=== PATIENT | male | born 1940 | race Caucasian/White ===

== ENCOUNTER → 2016-07-22 | Outpatient (CLI) | payer MEDICARE ==
[~2016-07-22] MED LIST: REGADENOSON 0.4 MG/5 ML DISP.SYRIN. IV ONE
== END | disposition home or self-care (01) ==
LOC: PCVCIMAG 07:32
PROVIDERS: ATTEND Internal Medicine Cardiovascular Disease
DX: I25.10 Atherosclerotic heart disease of native coronary artery without angina pectoris (principal); I73.9 Peripheral vascular disease, unspecified; I10 Essential (primary) hypertension; E78.00 Pure hypercholesterolemia, unspecified; I65.23 Occlusion and stenosis of bilateral carotid arteries
CPT/HCPCS: 78452; 93017; 93306; 93880; A9500; J2785

== ENCOUNTER → 2016-07-30 | Outpatient (CLI) | payer MEDICARE | END | disposition home or self-care (01) | LOC: PCVCCLINIC 11:20 | PROVIDERS: ATTEND Internal Medicine Cardiovascular Disease | DX: I42.9 Cardiomyopathy, unspecified (principal); E78.5 Hyperlipidemia, unspecified; I12.9 Hypertensive chronic kidney disease with stage 1 through stage 4 chronic kidney disease, or unspecified chronic kidney disease; N18.9 Chronic kidney disease, unspecified; G93.40 Encephalopathy, unspecified; R09.89 Other specified symptoms and signs involving the circulatory and respiratory systems; F10.10 Alcohol abuse, uncomplicated; I73.9 Peripheral vascular disease, unspecified; R19.8 Other specified symptoms and signs involving the digestive system and abdomen; I25.10 Atherosclerotic heart disease of native coronary artery without angina pectoris | CPT/HCPCS: 80061; 93005; G0463 ==

== ENCOUNTER → 2016-08-07 | Outpatient (CLI) | payer MEDICARE | END | disposition home or self-care (01) | LOC: PCVCIMAG 08:38 | PROVIDERS: ATTEND Internal Medicine Cardiovascular Disease | DX: I71.4 Abdominal aortic aneurysm, without rupture (principal); E78.5 Hyperlipidemia, unspecified; I10 Essential (primary) hypertension; I70.213 Atherosclerosis of native arteries of extremities with intermittent claudication, bilateral legs | CPT/HCPCS: 93925; 93978 ==

== ENCOUNTER → 2016-09-01 | Outpatient (CLI) | payer MEDICARE ==
[~2016-09-01] MED LIST changes: +ASPIRIN 325 MG TABLET ONE; +CEFAZOLIN 2GM PREMIX 50 ML IV ONE; +CLOPIDOGREL BISULFATE 75 MG TABLET ONE; +DIAZEPAM 10 MG TABLET ONE; +EPTIFIBATIDE BOLUS 2,000 MCG/ML 10ML VIAL. IV ONE; +FENTANYL PF 100 MCG/2 ML VIAL. ONE; +HEPARIN 5,000 UNIT/ML VIAL for PCVC ONE; +HEPARIN for ARTERIAL LINE 1,500 ML ONE; +IODIXANOL 270 MG/ML 100 ML VIAL. ONE; +IOHEXOL 350 MG/ML 100ML VIAL. ONE; +IV NORMAL SALINE 1000ML BAG 1,000 ML ONE; +IV NORMAL SALINE 500ML BAG 500 ML ONE; +LIDOCAINE 1% Multi-Dose 20 ML VIAL. ONE; +MIDAZOLAM HCL 2 MG/2 ML VIAL. ONE; -REGADENOSON 0.4 MG/5 ML DISP.SYRIN. IV ONE; +hydrALAZINE 20 MG/ML VIAL. ONE
== END ==
LOC: PCVCINTER 07:16
PROVIDERS: ATTEND Internal Medicine Cardiovascular Disease
DX: I70.203 Unspecified atherosclerosis of native arteries of extremities, bilateral legs (principal); I70.0 Atherosclerosis of aorta; I15.0 Renovascular hypertension; I70.1 Atherosclerosis of renal artery; I77.1 Stricture of artery
CPT/HCPCS: 36252; 37186; 37221; 37227; 75716; 76937; 93458; C1725; C1751; C1757; C1760; C1769; C1876; C1885; C1887; C1894; C2623; J0360; J0690; J1327; J1644; J2250; J3010; J7030; J7040; Q9967; 61707

== ENCOUNTER → 2017-03-05 | Outpatient (CLI) | payer BC | END | disposition home or self-care (01) | LOC: PCVCCLINIC 12:13 | PROVIDERS: ATTEND Internal Medicine Cardiovascular Disease | DX: I25.10 Atherosclerotic heart disease of native coronary artery without angina pectoris (principal); I12.9 Hypertensive chronic kidney disease with stage 1 through stage 4 chronic kidney disease, or unspecified chronic kidney disease; N18.3 Chronic kidney disease, stage 3 (moderate); F10.10 Alcohol abuse, uncomplicated; I42.9 Cardiomyopathy, unspecified; I73.9 Peripheral vascular disease, unspecified; I48.0 Paroxysmal atrial fibrillation; F17.210 Nicotine dependence, cigarettes, uncomplicated; R94.31 Abnormal electrocardiogram [ECG] [EKG]; Z79.899 Other long term (current) drug therapy | CPT/HCPCS: 80061; 93005; G0463 ==

== ENCOUNTER → 2017-03-09 | Outpatient (CLI) | payer BC ==
--- NOTE | 2017-03-09 13:50 | PCVCIMAG ---
EXAM: AORTOILIAC DUPLEX INDICATION: Peripheral arterial disease FINDINGS: AORTA: Suprarenal aorta measures maximum diameter of 2.7 cm. There is a fusiform infrarenal aortic aneurysm. The infrarenal aorta measures maximum diameter of 3.0 cm. N aortic stenosis. RIGHT COMMON ILIAC ARTERY: Maximum diameter is 1.3 cm. No significant stenosis. RIGHT EXTERNAL ILIAC ARTERY: No significant stenosis. LEFT COMMON ILIAC ARTERY: Maximum diameter is 1.4 cm. No significant stenosis. LEFT EXTERNAL ILIAC ARTERY: No significant stenosis. IMPRESSION: 3.0 cm infrarenal abdominal aortic aneurysm. No high-grade aortoiliac stenosis. LOC:[id number]
--- NOTE | 2017-03-09 13:53 | PCVCIMAG ---
EXAM: NONINVASIVE ARTERIAL EXAMINATION OF BOTH LOWER EXTREMITIES INCLUDING PRE AND POST EXERCISE PRESSURE MEASUREMENTS AND DOPPLER WAVEFORMS INDICATION: Peripheral Arterial Disease. Leg pain. FINDINGS: Right Brachial: 182 mm Hg. Right Dorsalis Pedis: 172 mm Hg. Right Posterior Tibial: 177 mm Hg. Right AMENA = 0.97. Left Brachial: 128 mm Hg. Left Dorsalis Pedis: 178 mm Hg. Left Posterior Tibial: 187 mm Hg. Left AMENA = 1.03. Post Exercise: Right Brachial 188 mm Hg. Right Posterior Tibial: 143 mm Hg. Left Posterior Tibial: 196 mm Hg. Right AMENA = 0.76. Left AMENA = 1.04. IMPRESSION: No resting ischemia in the right lower extremity. Mild exercise induced ischemia in the right lower extremity. No resting ischemia in the left lower extremity. No exercise induced ischemia in the left lower extremity. LOC:[id number]
--- NOTE | 2017-03-09 13:57 | PCVCIMAG ---
EXAM: BILATERAL LOWER EXTREMITY ARTERIAL DUPLEX INDICATION: Peripheral Arterial Disease. Leg pain. FINDINGS: Right Leg: Satisfactory arterial waveforms in the common femoral and profunda femoral artery. Mild velocity elevation mid superficial femoral artery of 240 cm/s consistent with 50% stenosis. The popliteal artery is patent. The anterior tibial, peroneal, posterior tibial arteries are patent. Left Leg: Satisfactory arterial waveforms in the common femoral and profunda femoral arteries. Mild velocity elevation proximal superficial femoral artery within the proximal portion of prior stent of 255 cm/s consistent with 40-50% restenosis. Remainder of the stent in the mid and distal superficial femoral artery showing good patency. Popliteal artery is patent. 70% stenosis proximal anterior tibial artery. The peroneal artery and posterior tibial artery are patent. IMPRESSION: 50% stenosis mid right superficial femoral artery not felt to be flow-limiting. 40-50% restenosis proximal left superficial femoral artery at the proximal margin of a prior stent. LOC:[id number]
--- NOTE | 2017-03-09 16:45 | PCVCIMAG ---
EXAM: ARTERIAL DUPLEX LEFT UPPER EXTREMITY INDICATION: Left arm pain. FINDINGS: Left arm: Increased systolic velocity proximal subclavian artery of 502 cm/s consistent with 95% stenosis. Bidirectional flow is noted in the left vertebral artery. Mid and distal subclavian artery are patent. The axillary, brachial, radial, and ulnar arteries are patent. 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 LOC:[place] [id number]
--- NOTE | 2017-03-11 08:40 | PCVCIMAG ---
APPROVED REPORT Exam: Stress Echocardiogram Indication: CAD, Hypertension, PVD. Stress Nurse: Julieta Block RN Status: routine Ht: 5 ft 7 in Rhythm: NSR Procedure The patient underwent an Exercise Stress Test using the Grant Protocol. Blood pressure, heart rate, and EKG were monitored. An Echocardiogram was performed by mechanical technician in four stages in quad fashion. At peak stress, four selected images were obtained and placed side by side with resting images for comparison. Stress Test Details Stress Test: Exercise stress testing was performed using a Grant protocol. HR Resting HR: 65 bpmMax Heart Rate (APMHR): 143 bpm Max HR Achieved: 122 bpmTarget HR (85% APMHR): 121 bpm % of APMHR: 85 HR response to stress: Normal HR response to stress BP Resting BP: 140/80 mmHg Max BP: 190/88 mmHg ECG Resting ECG: Sinus Rhythm ST Change: ST depression Arrhythmia: VPC's Clinical Reason for Termination: Maximal effort Stress Symptoms: Dyspnea Exercise duration: 6 min sec Highest Stage Achieved: Stage 2: 2.5 mph at 12% grade. Exercise capacity: 7.20 METs Overall Exercise Capacity for Age: Average Stress ECG Conclusion Submaxima stress test. Pre-Stress Echo The resting Echocardiogram showed normalabnormal left ventricular contractility with an estimated Ejection Fraction of about 40-45%. Apical, anterior and inferior wall hypokinesis. Post-Stress Echo The stress Echocardiogram showed abnormal left ventricular contractility with an estimated Ejection Fraction of about 40-45%. Apical, anterior and inferior wall hypokinesis Conclusion Clinical Response: Equivocal Exercise Capacity: Below Average Stress ECG Response: Ischemic Stress Echo Images: Equivocal
== END | disposition home or self-care (01) ==
LOC: PCVCIMAG 10:27
PROVIDERS: ATTEND Internal Medicine Cardiovascular Disease
DX: I70.202 Unspecified atherosclerosis of native arteries of extremities, left leg (principal); I70.291 Other atherosclerosis of native arteries of extremities, right leg; I71.4 Abdominal aortic aneurysm, without rupture; M79.622 Pain in left upper arm; I77.1 Stricture of artery; Z95.828 Presence of other vascular implants and grafts
CPT/HCPCS: 93325; 93351; 93923; 93925; 93931; 93978; 93924

== ENCOUNTER → 2017-03-13 | Outpatient (CLI) | payer BC | END | disposition home or self-care (01) | LOC: PCVCCLINIC 15:35 | PROVIDERS: ATTEND Nuclear Medicine Nuclear Cardiology | DX: Z01.812 Encounter for preprocedural laboratory examination (principal); I73.9 Peripheral vascular disease, unspecified; I25.10 Atherosclerotic heart disease of native coronary artery without angina pectoris; I10 Essential (primary) hypertension | CPT/HCPCS: 36415 ==

== ENCOUNTER → 2017-03-16 | Outpatient (CLI) | payer BC ==
[~2017-03-16] MED LIST changes: -ASPIRIN 325 MG TABLET ONE; -CEFAZOLIN 2GM PREMIX 50 ML IV ONE; -CLOPIDOGREL BISULFATE 75 MG TABLET ONE; -DIAZEPAM 10 MG TABLET ONE; +DIAZEPAM 10 MG TABLET. ONE; -FENTANYL PF 100 MCG/2 ML VIAL. ONE; -HEPARIN 5,000 UNIT/ML VIAL for PCVC ONE; +HEPARIN SODIUM 5,000 UNIT/ML VIAL for PCVC. ONE; +IOHEXOL 300 MG/ML 100ML VIAL. ONE; +IOHEXOL 350 MG/ML 100 ML VIAL. ONE; -IOHEXOL 350 MG/ML 100ML VIAL. ONE; -IV NORMAL SALINE 1000ML BAG 1,000 ML ONE; +IV NORMAL SALINE 500ML BAG 0 ML ONE; +LIDOCAINE 1%/EPI 1:100,000 20 ML VIAL. ONE; -MIDAZOLAM HCL 2 MG/2 ML VIAL. ONE; +MIDAZOLAM HCL/PF 2 MG/2 ML VIAL. ONE; +NITROGLYCERIN PREMIX 0 ML IV ONE; +fentaNYL PF VIAL 100 MCG/2 ML VIAL ONE
--- NOTE | 2017-03-16 17:18 | PCVCINTER ---
EXAM: 1. AORTOGRAM AND BILATERAL LOWER EXTREMITY RUNOFF ANGIOGRAM 2. BILATERAL RENAL ANGIOGRAPHY 3. CERVICAL CEPHALIC ARCH AORTOGRAM. 4. LEFT SUBCLAVIAN ANGIOGRAPHY. 5. LEFT SUBCLAVIAN ARTERY ANGIOSCULPT ANGIOPLASTY. 6. RIGHT COMMON ILIAC ARTERY STENT PLACEMENT. 7. RIGHT EXTERNAL ILIAC ARTERY ANGIOPLASTY. INDICATION: Peripheral arterial disease. Coronary artery disease. Lower extremity pain. Hypertension. Renal atherosclerosis. Left subclavian steal. Left arm pain. PROCEDURE: Procedure and risks of angiography intervention is appropriate including limb loss stroke and were discussed with the patient's family and consent obtained. The patient's right groin was prepped abnormal sterile fashion. IV conscious sedation was used to procedure with appropriate monitoring from 11:00 AM through 12:30 PM. Ultrasound was used to interrogate the right groin and showed the right common femoral artery to be patent. A permanent spot film was obtained. Under ultrasound guidance access into the right common femoral artery was obtained and a 5 Vietnamese sheath was placed. Through this a 5 Vietnamese flush catheter was placed to the level of the ascending aorta and cervical cephalic arch aortogram was performed. Catheter was then placed into the abdominal aorta at the level of the renal arteries and AP aortogram was performed. Catheter was positioned at the aortic bifurcation and both oblique views of the pelvis were obtained. Catheter was positioned into the right external iliac artery and right leg runoff angiography was performed. Catheter was exchanged for a visceral catheter was placed into the right renal arteries and right renal angiograms obtained. Catheter was placed into the the left renal arteries and left renal angiograms were obtained. Catheter was advanced to the level of the left external iliac artery and left leg runoff angiography was obtained. Catheter was placed into the proximal left subclavian artery left subclavian angiogram was obtained. Patient was given 4500 units of heparin. Angioplasty of the stenosis in the proximal/mid left subclavian artery was accomplished with a 7 x 4 angiosculpt PERSONNEL ANALYST catheter. Stent placement across the areas of high-grade stenosis in the right common iliac artery was carried out with a 10 x 40 Smart control stent with subsequent dilatation to 9.0 mm. Angioplasty of in-stent restenosis in the right external iliac artery was carried out with an 8 x 4 PowerFlex PERSONNEL ANALYST catheter. Follow-up angiogram was performed. Catheters and wires removed. Dr. Bejarano joined the procedure and he performed coronary angiography. Please see his dictation for details. Sheath was removed and hemostasis obtained using the FISH device. No immediate complications. FINDINGS: Cervical cephalic arch aortogram: The innominate artery and left common carotid artery origins are patent. The origin left subclavian artery is patent. Left subclavian angiogram: In the proximal/mid subclavian artery just proximal to the origin of the left vertebral artery is a 90% stenosis. There is bidirectional flow in the left vertebral artery. Aortogram: There are 2 right and one left renal artery. Ectasia and ulceration of the mid infrarenal abdominal aorta. No high-grade stenosis. Pelvis: Moderate stenosis of the common iliac artery. Moderate in-stent restenosis proximal/mid external iliac artery on the right. Mild stenosis right common femoral artery. Scattered plaque in the left common iliac artery without significant stenosis. Previous stent left external iliac artery maintaining satisfactory patency. Both internal iliac arteries are patent. Mild stenosis lower common femoral artery. Both profunda femoral arteries are patent. Right renal artery: There are 2 right renal arteries. The lower renal artery origin is just above the aortic bifurcation and shows mild stenosis in its proximal portion. The upper renal artery is dominant showing moderate plaque with only minimal stenosis. Left renal artery: Moderate plaque proximal vessel without significant stenosis. Right leg: Moderate scattered plaque in the superficial femoral artery and popliteal artery without flow-limiting stenosis. Satisfactory three-vessel runoff into the foot. Left leg: Previous stent graft throughout the superficial femoral artery is maintaining good patency. The popliteal artery is patent. 90% stenosis at the origin of the anterior tibial artery. The peroneal artery and posterior tibial arteries are patent throughout were visualized. Left subclavian artery: Following procedure as above vessel shows good patency without significant residual stenosis. Right common iliac artery: Following procedure as above vessel shows good patency. Right external iliac artery: Following procedure as above vessel shows good patency. IMPRESSION: 90% stenosis proximal/mid left subclavian artery as described above was treated as above with good patency restored. Right common and external iliac artery stenoses were treated as above with good patency restored. Previous left superficial femoral artery stent maintaining good patency. follow up LOC:[place] [id number]
--- NOTE | 2017-03-17 23:23 | PCVCINTER ---
APPROVED REPORT Patient Details Patient Status: Room #: 3 The patient is a 76 year-old Male Event Personnel Milli Nunez RN, Micheal Galaviz RN, Paulo Sapp RT(R)(), Caroline Phillips RT(R), Carmelina Cortes MD, Trav Bejarano MD Risk Factors Arterial HypertensionDysplipidemia (Type: 1), Family HistoryPeripheral Vascular Disease, Hypercholesterolemia, Last Creatanine 0.9Tobacco History (Current/Recent(w/in 1 year)) Previous Procedures/Diagnoses Previous Femoral Procedure, Previous CHF, CAD, CHF, PVD, LV dysfunction, Hypertension Procedure Narrative The patient was brought electively to the Cardiac Catheterization Laboratory and was prepped and draped in a sterile manner. The right femoral was infiltrated with 1% Lidocaine subcutaneous anesthesia. The right femoral accessed via ultrasound guidance. A sheath was inserted into the right femoral artery. Coronary angiography was performed using coronary diagnostic catheters. The right coronary system was accessed and visualized with a Diagnostic catheter. The left coronary system was accessed and visualized with a Diagnostic catheter. The left ventricle was accessed and visualized with a Diagnostic catheter. Left ventriculogram was performed in VARGAS projection. Closure device was deployed with a 8 Fr Fish. Hemostasis was obtained with manual pressure following sheath removal without any complications. The patient tolerated the procedure well and there were no complications associated with the procedure. There was no hematoma. Hemodynamics The right atrial mean pressure is 9 mmHg. The right ventricular pressure is 139 mmHg. The pulmonary artery pressure is 139 mmHg with a mean of 9 mmHg. The mean pulmonary capillary wedge pressure is 9 mmHg. The aortic pressure is 157/51 mmHg with a mean of 32 mmHg. The left ventricular pressure is 139/3 mmHg with a mean of 9 mmHg. Conclusion #1 normal left ventricular size and systolic function lower limits of normal EF 50-55% #2 left main free of disease giving rise to LAD and circumflex #3 LAD mildly disease 3040% proximal and mild diffuse disease in this vessel is extensive the apex #4 nondominant circumflex with diffuse disease involving OM and small distal circumflex. #5 large dominant right coronary artery 3040% proximal lesion distally there is a 50-60% long stenosis proximal to the bifurcation not flow limiting PDA EMANUEL a large and well-preserved Recommendations and plan continue aggressive risk factor modification no current indication for intervention. No lifting for 48 hours no line tub Jacuzzi or Galloway for a week. Close follow-up scheduled.
== END | disposition home or self-care (01) ==
LOC: PCVCINTER 09:33
PROVIDERS: ATTEND Nuclear Medicine Nuclear Cardiology
DX: I70.213 Atherosclerosis of native arteries of extremities with intermittent claudication, bilateral legs (principal); G45.8 Other transient cerebral ischemic attacks and related syndromes; I10 Essential (primary) hypertension; I70.1 Atherosclerosis of renal artery
CPT/HCPCS: 36215; 36246; 36252; 37220; 37221; 75710; 75716; 76937; 93458; 99152; 99153; C1725; C1751; C1769; C1876; C1894; J0360; J0690; J1327; J1644; J2250; J3010; J3490; J7040; Q9967

== ENCOUNTER → 2017-08-03 | Outpatient (CLI) | payer BC | END | disposition home or self-care (01) | LOC: PCVCCLINIC 11:38 | DX: I25.10 Atherosclerotic heart disease of native coronary artery without angina pectoris (principal); I77.1 Stricture of artery; I73.9 Peripheral vascular disease, unspecified; G93.40 Encephalopathy, unspecified; I12.9 Hypertensive chronic kidney disease with stage 1 through stage 4 chronic kidney disease, or unspecified chronic kidney disease; N18.3 Chronic kidney disease, stage 3 (moderate); I42.9 Cardiomyopathy, unspecified; F10.10 Alcohol abuse, uncomplicated; E78.00 Pure hypercholesterolemia, unspecified; F17.210 Nicotine dependence, cigarettes, uncomplicated | CPT/HCPCS: 93005; G0463 ==

== ENCOUNTER → 2017-09-18 | Outpatient (CLI) | payer BC | END | disposition home or self-care (01) | LOC: PCVCIMAG 10:29 | DX: I65.23 Occlusion and stenosis of bilateral carotid arteries (principal); I71.4 Abdominal aortic aneurysm, without rupture; I73.9 Peripheral vascular disease, unspecified; I70.8 Atherosclerosis of other arteries | CPT/HCPCS: 93880; 93926; 93931; 93978 ==

== ENCOUNTER → 2017-09-22 | Outpatient (CLI) | payer BC | END | disposition home or self-care (01) | LOC: PCVCCLINIC 15:05 | DX: N18.3 Chronic kidney disease, stage 3 (moderate) (principal); I73.9 Peripheral vascular disease, unspecified; I77.1 Stricture of artery; I25.10 Atherosclerotic heart disease of native coronary artery without angina pectoris; I77.9 Disorder of arteries and arterioles, unspecified; I71.4 Abdominal aortic aneurysm, without rupture; E78.00 Pure hypercholesterolemia, unspecified; F17.210 Nicotine dependence, cigarettes, uncomplicated; Z79.899 Other long term (current) drug therapy; Z79.82 Long term (current) use of aspirin | CPT/HCPCS: G0463 ==

== ENCOUNTER → 2018-03-30 | Outpatient (CLI) | payer BC ==
--- NOTE | 2018-03-30 14:32 | PCVCIMAG ---
EXAM: NONINVASIVE ARTERIAL EXAMINATION OF BOTH LOWER EXTREMITIES INCLUDING PRE AND POST EXERCISE PRESSURE MEASUREMENTS AND DOPPLER WAVEFORMS INDICATION: Peripheral Arterial Disease. Leg pain. FINDINGS: Right Brachial: 145 mm Hg. Right Dorsalis Pedis: 108 mm Hg. Right Posterior Tibial: 100 mm Hg. Right AMENA = 0.74. Left Brachial: 125 mm Hg. Left Dorsalis Pedis: 153 mm Hg. Left Posterior Tibial: 179 mm Hg. Left AMENA = 1.23. Post Exercise: Right Brachial 162 mm Hg. Right Dorsalis Pedis: 49 mm Hg. Left Posterior Tibial: 149 mm Hg. Right AMENA = 0.30. Left AMENA = 0.92. IMPRESSION: Mild resting ischemia in the right lower extremity. Moderately severe exercise induced ischemia in the right lower extremity. No resting ischemia in the left lower extremity. No exercise induced ischemia in the left lower extremity. LOC:[id number]
--- NOTE | 2018-03-30 17:51 | PCVCIMAG ---
EXAM: BILATERAL LOWER EXTREMITY ARTERIAL DUPLEX INDICATION: Peripheral Arterial Disease. Leg pain. FINDINGS: Right Leg: Common femoral and profunda femoral arteries are patent. Increased systolic velocity 507 cm/s mid pilot point superficial femoral artery consistent with 90% stenosis. Popliteal artery is patent. Anterior tibial, peroneal, and posterior tibial arteries are patent. Left Leg: Common femoral and profunda femoral arteries are patent. Mild 40-50% stenosis proximal superficial femoral artery within the proximal margin of a prior stent not felt be flow-limiting. Remainder of the superficial femoral artery stent maintaining satisfactory patency. The popliteal artery is patent. The anterior tibial, peroneal, and posterior tibial arteries are patent. IMPRESSION: 90% stenosis mid pilot point right superficial femoral artery. 40-50% restenosis proximal left superficial femoral artery within prior stent as described not felt be flow-limiting. LOC:[id number]
== END | disposition home or self-care (01) ==
LOC: PCVCIMAG 13:40
PROVIDERS: ATTEND Internal Medicine Cardiovascular Disease
DX: I73.9 Peripheral vascular disease, unspecified (principal); M79.604 Pain in right leg; M79.605 Pain in left leg
CPT/HCPCS: 93923; 93925; 93924

== ENCOUNTER → 2018-04-06 | Outpatient (CLI) | payer BC ==
[~2018-04-06] MED LIST changes: -HEPARIN SODIUM 5,000 UNIT/ML VIAL for PCVC. ONE; -HEPARIN for ARTERIAL LINE 1,500 ML ONE; +HEPARIN for SUB-Q USE 5,000 UNIT/ML VIAL. SQ ONE; -IOHEXOL 300 MG/ML 100ML VIAL. ONE; +IV NORMAL SALINE 1000ML BAG 1,000 ML ONE; -IV NORMAL SALINE 500ML BAG 0 ML ONE; -IV NORMAL SALINE 500ML BAG 500 ML ONE; -LIDOCAINE 1% Multi-Dose 20 ML VIAL. ONE; -NITROGLYCERIN PREMIX 0 ML IV ONE; +WATER FOR INJECTION,STERILE 10 ML IJ ONE; +ceFAZolin SODIUM 1 GM VIAL ONE
--- NOTE | 2018-04-06 12:17 | PCVCINTER ---
EXAM: 1. AORTOGRAM AND BILATERAL LOWER EXTREMITY RUNOFF ANGIOGRAM 2. BILATERAL RENAL ANGIOGRAPHY 3. RIGHT SUPERFICIAL FEMORAL ARTERY ATHERECTOMY AND STENT PLACEMENT. 4. SECONDARY THROMBECTOMY RIGHT SUPERFICIAL FEMORAL ARTERY. 5. DRUG COATED BALLOON ANGIOPLASTY RIGHT SUPERFICIAL FEMORAL ARTERY. 6. CERVICAL CEPHALIC ARCH AORTOGRAM. 7. LEFT SUBCLAVIAN ANGIOGRAPHY. 8. LEFT SUBCLAVIAN ARTERY DRUG COATED BALLOON ANGIOPLASTY. INDICATION: Peripheral arterial disease. Coronary artery disease. Nonhealing ulcer right lower extremity. Hypertension. Renal atherosclerosis. No prior catheter based angiographic study is available. A full diagnostic angiogram study is performed today and the decision to intervene is based on this diagnostic study. PROCEDURE: Procedure and risks of angiography intervention is appropriate including limb loss stroke and were discussed with the patient's family and consent obtained. The patient's left groin was prepped in the normal sterile fashion. IV conscious sedation was used throughout procedure with appropriate monitoring from 9:00 AM through 11:00 AM. Ultrasound was used to interrogate the left groin and showed the left common femoral artery to be patent. A permanent spot film was obtained. Under ultrasound guidance access into the left common femoral artery was obtained and a 5 Azeri sheath was placed. Through this a 5 Azeri flush catheter was placed into the abdominal aorta at the level of the renal arteries and AP aortogram was performed. Catheter was positioned into the ascending thoracic aorta and cervical cephalic arch aortogram was obtained. Catheter was positioned at the aortic bifurcation and both oblique views of the pelvis were obtained. Catheter was positioned into the left external iliac artery and left leg runoff angiography was performed. Catheter was exchanged for a visceral catheter was placed into the right renal arteries and right renal angiograms obtained. Catheter was placed into the the left renal arteries and left renal angiograms were obtained. Catheter was advanced to the level of the right external iliac artery and right leg runoff angiography was obtained. Patient was given 4500 units of heparin. Catheter was placed into the left subclavian artery and subclavian angiogram was performed. Drug coated balloon angioplasty of the proximal/mid left subclavian artery was performed with a 6 x 40 Spectranetics Rachell Yuri, FARE COLLECTOR catheter. Additional angioplasty in the proximal/mid left subclavian artery was performed with an 8 x 4 PowerFlex FARE COLLECTOR catheter. A 6 Azeri crossover sheath was placed via the left groin to the level of the right common femoral artery. Atherectomy of the right superficial femoral artery was performed with 2.0 mm SpectranetSimpleCrew laser atherectomy catheter in the standard fashion. Following atherectomy small areas of thrombus were observed and because of this secondary thrombectomy throughout the right superficial femoral artery was carried out with mechanical suction thrombectomy catheter in the standard fashion. Minimal debris was removed. Following this drug coated balloon angioplasty of the right superficial femoral artery was carried out with a 6 x 120 SpectranetSimpleCrew Rachell Yuri FARE COLLECTOR catheter. Stent placement across the areas of high-grade stenosis in the right superficial femoral artery was carried out with a 6 x 60 Smart control stent with subsequent dilatation to 6.0 mm. Follow-up angiogram was performed. Dr. Bejarano joined the procedure and he performed coronary angiography. Please see his separate dictation for full details. Catheters and wires removed. Sheath was removed and hemostasis obtained using the FISH device. No immediate complications. FINDINGS: Cervical cephalic arch aortogram: The origins of the great vessels show good patency. Cranial directed flow in the right vertebral artery is noted but retrograde flow in the left vertebral artery is identified. Left subclavian angiography: In the proximal/midportion of the left subclavian artery near the origin of the left vertebral artery is 90% area restenosis. Distal portions subclavian artery and left axillary artery is patent. Aortogram: There are 2 right and one left renal artery. Moderate atheromatous change infrarenal abdominal aorta with note made of a small fusiform aneurysm. Pelvis: The right and left common iliac arteries are patent. Both internal iliac arteries are patent. Both external iliac arteries are patent including areas of previous stent. Moderate plaque in the right and left common femoral arteries without flow-limiting stenosis. The origins of the right and left profunda femoral arteries are maintaining satisfactory patency. Right renal artery: There are 2 right renal arteries. The main renal arteries and normal position and there is also a right renal artery feeding the lower pole of the kidney arising just before the aortic bifurcation. Both of these arteries show satisfactory patency. Left renal artery: Mild plaque proximally is not cause significant stenosis. Right leg: Subtotal occlusion mid superficial femoral artery. Moderate plaque distal superficial femoral artery without flow-limiting stenosis. Popliteal artery is patent. Three-vessel runoff into the foot. Left leg: Previous stent throughout the length of the superficial femoral artery maintaining good patency. Popliteal artery is patent. 90% stenosis origin anterior tibial artery which is otherwise widely patent vessel into normal sized dorsalis pedis. The peroneal and posterior tibial arteries are patent. Right superficial femoral artery: Following procedure as above vessel shows good patency throughout. Left subclavian artery: Following procedure as above vessel shows good patency. IMPRESSION: 90% stenosis proximal/mid left subclavian artery at site of previous intervention was treated as above with good patency restored. Interval development of focal subtotal occlusion mid [place] right superficial femoral artery was treated as above with good patency restored. LOC:[id number]
--- NOTE | 2018-04-07 11:01 | PCVCINTER ---
APPROVED REPORT Study performed: 04/06/2018 10:55:10 Patient Details Patient Status: Out-Patient Room #: 2 The patient is a 77 year-old Male Event Personnel Darci Lim MD, Guillermo Loving RT(R)(), Javier Pate RT(R), Milli Nunez RN Risk Factors Arterial HypertensionDysplipidemia (Type: 1), Peripheral Vascular Disease, Hypercholesterolemia, Renal Failure, Last Creatanine 1.1Tobacco History (Current/Recent(w/in 1 year)), Dialysis Previous Procedures/Diagnoses Previous PCI, Previous Femoral Procedure, Previous Vascular Surgery, CAD, CHF, PVD, LV dysfunction, Hypertension Procedure Narrative A 6f sheath was inserted into the left femoral artery. Coronary angiography was performed using coronary diagnostic catheters. The right coronary system was accessed and visualized with a JR4 catheter. The left coronary system was accessed and visualized with a JL4 catheter. The left ventricle was accessed and visualized with a Straight Pigtail catheter. Left ventriculogram was performed in VARGAS projection. Closure device was deployed with a 6 Fr FISH. The patient tolerated the procedure well and there were no complications associated with the procedure. There was no hematoma. Hemodynamics The aortic pressure is 162/66 mmHg with a mean of 106 mmHg. The left ventricular pressure is 168/6 mmHg with a mean of 12 mmHg. Conclusion #1 normal left ventricular size and systolic function EF 55-60% #2 left main moderate size giving rise to LAD and circumflex no significant disease #3 LAD with mild eccentric proximal and mid lesions of 50% extends around the apex well preserved #4 circumflex OM is nondominant with mild disease #5 dominant right coronary with an eccentric 50-60% distal lesion this appears to be relatively stable the PDA EMANUEL well preserved it is a dominant vessel Recommendations and plan: Continue aggressive risk factor modification no indication for coronary intervention. Follow post catheter peripheral stent protocol
== END | disposition home or self-care (01) ==
LOC: PCVCINTER 07:45
PROVIDERS: ATTEND Nuclear Medicine Nuclear Cardiology
DX: I70.238 Atherosclerosis of native arteries of right leg with ulceration of other part of lower leg (principal); L97.818 Non-pressure chronic ulcer of other part of right lower leg with other specified severity; I25.10 Atherosclerotic heart disease of native coronary artery without angina pectoris; I70.292 Other atherosclerosis of native arteries of extremities, left leg; I70.92 Chronic total occlusion of artery of the extremities; I70.1 Atherosclerosis of renal artery; I77.1 Stricture of artery; I13.0 Hypertensive heart and chronic kidney disease with heart failure and stage 1 through stage 4 chronic kidney disease, or unspecified chronic kidney disease; N18.9 Chronic kidney disease, unspecified; I50.9 Heart failure, unspecified; I42.9 Cardiomyopathy, unspecified; E78.01 Familial hypercholesterolemia; N40.0 Benign prostatic hyperplasia without lower urinary tract symptoms; Z98.42 Cataract extraction status, left eye; Z98.41 Cataract extraction status, right eye; Z96.1 Presence of intraocular lens; I71.4 Abdominal aortic aneurysm, without rupture; Z98.890 Other specified postprocedural states; Z72.89 Other problems related to lifestyle; Z88.8 Allergy status to other drugs, medicaments and biological substances; Z79.899 Other long term (current) drug therapy; Z79.82 Long term (current) use of aspirin
CPT/HCPCS: 36215; 36252; 37186; 37227; 37246; 75716; 76937; 93458; 99152; 99153; C1725; C1751; C1757; C1760; C1769; C1876; C1885; C1894; C2623; J0690; J1327; J1644; J2250; J3010; J3490; J7030; Q9967; 75710; J0360

== ENCOUNTER → 2018-04-15 | Outpatient (CLI) | payer BC ==
--- NOTE | 2018-04-15 18:08 | PCVCIMAG ---
EXAM: DUPLEX ULTRASOUND OF THE LEFT GROIN INDICATION: Groin swelling and pain. FINDINGS: No pseudoaneurysm is present. The common femoral artery and vein are patent. No arteriovenous fistula is seen. IMPRESSION: Study is negative for pseudoaneurysm. Incidental note is made of 0.9 x 1.5 x 3.0 cm subcutaneous resolving hematoma. LOC:[id number]
== END | disposition home or self-care (01) ==
LOC: PCVCINTER 11:59
PROVIDERS: ATTEND Nuclear Medicine Nuclear Cardiology
DX: I73.9 Peripheral vascular disease, unspecified (principal); R19.09 Other intra-abdominal and pelvic swelling, mass and lump; R10.32 Left lower quadrant pain
CPT/HCPCS: 93926

== ENCOUNTER → 2018-08-16 | Outpatient (CLI) | payer BC ==
--- NOTE | 2018-08-16 10:21 | PCVCIMAG ---
EXAM: BILATERAL CAROTID DUPLEX INDICATION: Carotid Occlusive Disease. FINDINGS: Doppler Measurements (centimeters per second): RIGHT: Peak CCA-72, Peak ECA-102, Diastolic ICA-15, Peak ICA-59, ICA/CCA Ratio-0.8. LEFT: Peak CCA-55, Peak ECA-104, Diastolic ICA-28, Peak ICA-76, ICA/CCA Ratio-1.4. RIGHT CAROTID: The carotid bulb has moderate plaque. The proximal internal carotid artery shows <40% stenosis. The common carotid artery shows no significant stenosis. The external carotid artery shows no significant stenosis. LEFT CAROTID: The carotid bulb has mild plaque. The proximal internal carotid artery shows <40% stenosis. The common carotid artery shows no significant stenosis. The external carotid artery shows no significant stenosis. Antegrade flow in both vertebral arteries. IMPRESSION: <40% stenosis of the right internal carotid artery with moderate plaque. <40% stenosis of the left internal carotid artery with mild plaque. LOC:[place] [id number]
--- NOTE | 2018-08-16 13:17 | PCVCIMAG ---
EXAM: NONINVASIVE ARTERIAL EXAMINATION OF BOTH LOWER EXTREMITIES INCLUDING PRE AND POST EXERCISE PRESSURE MEASUREMENTS AND DOPPLER WAVEFORMS INDICATION: Peripheral Arterial Disease. Leg pain. FINDINGS: Right Brachial: 165 mm Hg. Right Dorsalis Pedis: 169 mm Hg. Right Posterior Tibial: 179 mm Hg. Right AMENA = 1.07. Left Brachial: 168 mm Hg. Left Dorsalis Pedis: 164 mm Hg. Left Posterior Tibial: 184 mm Hg. Left AMENA = 1.10. Post Exercise: Left Brachial 179 mm Hg. Right Posterior Tibial: 119 mm Hg. Left Posterior Tibial: 150 mm Hg. Right AMENA = 0.66. Left AMENA = 0.84. IMPRESSION: No resting ischemia in the right lower extremity. Mild exercise induced ischemia in the right lower extremity. No resting ischemia in the left lower extremity. Minimal exercise induced ischemia in the left lower extremity. LOC:[id number]
--- NOTE | 2018-08-16 13:21 | PCVCIMAG ---
EXAM: AORTOILIAC DUPLEX INDICATION: Abdominal aortic aneurysm. Peripheral arterial disease. FINDINGS: AORTA: Suprarenal aorta measures maximum diameter of 3.0 cm. There is a fusiform infrarenal aortic aneurysm. The infrarenal aorta measures maximum diameter of 3.3 cm. No aortic stenosis. RIGHT COMMON ILIAC ARTERY: Maximum diameter is 1.3 cm. No significant stenosis. RIGHT EXTERNAL ILIAC ARTERY: No significant stenosis. LEFT COMMON ILIAC ARTERY: Maximum diameter is 1.2 cm. No significant stenosis. LEFT EXTERNAL ILIAC ARTERY: No significant stenosis. IMPRESSION: 3.3 cm infrarenal abdominal aortic aneurysm. No aortoiliac stenosis. No change since September 2017 study. LOC:[id number]
--- NOTE | 2018-08-16 13:24 | PCVCIMAG ---
EXAM: RIGHT LOWER EXTREMITY ARTERIAL DUPLEX INDICATION: Peripheral Arterial Disease. Leg pain. FINDINGS: Right Leg: Common femoral and profunda femoral arteries are patent. Minimal stenosis proximal bois forte superficial femoral artery. Previous mid/distal superficial femoral artery stent maintaining good patency. Popliteal artery is patent. The anterior tibial, peroneal, and posterior tibial arteries are patent. IMPRESSION: No flow limiting stenosis in the right lower extremity. Previous right superficial femoral artery stent maintaining good patency. LOC:[id number]
== END | disposition home or self-care (01) ==
LOC: PCVCIMAG 08:30
PROVIDERS: ATTEND Nuclear Medicine Nuclear Cardiology
DX: I65.23 Occlusion and stenosis of bilateral carotid arteries (principal); I73.9 Peripheral vascular disease, unspecified; I71.4 Abdominal aortic aneurysm, without rupture; I77.9 Disorder of arteries and arterioles, unspecified
CPT/HCPCS: 93880; 93924; 93926; 93978